=== PATIENT | male | born 1970 | race Caucasian/White ===

== ENCOUNTER → 2019-02-28 | Outpatient (CLI) | payer OTHER ==
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
--- NOTE | 2019-03-03 09:00 | RADRPT ---
PROCEDURE: XR knees CLINICAL INDICATION: Knee pain. TECHNIQUE: 4 views of the bilateral knees were obtained. COMPARISON: None. FINDINGS: Right knee: There is no acute fracture or dislocation. Osseous structures are intact. There is mild narrowing of the medial tibio-femoral compartment. There is no knee joint effusion. Left knee: There is no acute fracture or dislocation. There are moderate arthritic changes of the la teral tibio-femoral compartment with irregularity of the distal femur and tibial plateau at the artic ular surface. There are mild osteoarthritic changes of the medial tibio-femoral and patellofemoral co mpartments. There is a 1.2 cm osteophyte or intra-articular loose body at the intercondylar notch. Th ere is a small knee joint effusion. There is mild prepatellar soft tissue swelling. IMPRESSION: 1. [id number] tricompartmental arthritic changes of left knee, most severe at the lateral tibi o-femoral compartment. Irregularity of the articular surface at the lateral compartment may represent bony erosions or subchondral cystic changes. Large osteophyte versus intra-articular loose body at t he intercondylar notch. Small left knee joint effusion and mild prepatellar soft tissue swelling. Fin dings could represent primary osteoarthritis or secondary to an inflammatory or infectious process. 2. Mild narrowing of the medial tibio-femoral compartment of the right knee. RPTAT:HAJM Physician Cheryl Date Time Electronically viewed and signed by Physician Cheryl on 03/03/2019 09:00 MIN/
== END | disposition home or self-care (01) ==
LOC: HKI 14:30
PROVIDERS: ATTEND Orthopaedic Surgery Adult Reconstructive Orthopaedic Surgery
DX: M25.562 Pain in left knee (principal)
CPT/HCPCS: 73564; Z7500; G0463

== ENCOUNTER → 2019-03-17 | Outpatient (CLI) | payer OTHER ==
--- NOTE | 2019-03-17 17:20 | CONS ---
Consult Date/Type/Reason Admit Date/Time Initial Consult Date Date/Time of Note DATE: 03/17/19 TIME: 17:18 Subjective 49-year-old male follows up today for left knee steroid injection secondary to traumatic arthritis. He currently is not a surgical candidate secondary to social and medical issues. States symptoms are unchanged since last visit. He has had previous steroid injection which helped significantly for many months. Objective Vitals Weight: 1 7 5 pounds Height: 6 foot Temperature: 90.2 Heart Rate: 73 Blood Pressure: 140/70 Respiratory Rate: 16 Exam General: Awake, alert, in no acute distress, pleasant and cooperative Heart: regular rhythm Lungs: breathing comfortably, no tachypnea or dyspnea MUSCULOSKELETAL: Left lower extremity: Skin intact. No erythema. Sensation intact to light touch in a sural, saphenous, deep peroneal, superficial peroneal, medial and lateral plantar nerve distribution. Motor is intact, patient able to dorsiflex and plantarflex ankle and extend and flex great toe. Dorsalis Pedis pulse +2, Brisk capillary refill. Compartments are soft. Calves non-tender to palpation bilaterally. 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 He is following up today for a steroid injection. Assessment/Plan (Daily) Left knee steroid injection procedure: Risks and benefits of steroid injection reviewed with patient. The risks include infection, failure, pain, swelling, nerve/tendon/ligament damage. The patient verbalized understanding and verbal consent was obtained prior to procedure. The left knee was prepped in a sterile fashion with alcohol and betadine the site of injection was confirmed. Anteromedial approach was used. The skin and capsule was anesthetized with 3mL 1% lidocaine. The left knee was injected with 2mL 1% lidocaine, 2mL 0.25% bupivacaine, 40mg Depo-Medrol. Injection flowed freely. Good hemostasis was achieved and no complications noted. The patient tolerated the procedure well. Limit activity and ice for 24-48 hours DANNIELLE ABBOTT MD March 17, 2019 17:20
== END | disposition home or self-care (01) ==
LOC: HKI 14:46
PROVIDERS: ATTEND Orthopaedic Surgery Adult Reconstructive Orthopaedic Surgery
DX: M17.12 Unilateral primary osteoarthritis, left knee (principal)
CPT/HCPCS: 20610; Z7500; Z7610; G0463